=== PATIENT | male | born 1985 | race African-American/Black ===

== ENCOUNTER 2018-09-07 10:30 | Emergency (ER) | payer MEDICAID ==
[~2018-09-07] VITALS: Ht 190.5 cm; Wt 155.0 kg
[2018-09-07] MEDS ORDERED: ALBUTEROL (0.083%) 2.5MG/3ML NEB HHN STA (11:01)
[2018-09-07] MEDS ORDERED: ACETAMINOPHEN 325MG TABLET PO ONE (12:00)
[2018-09-07] MEDS ORDERED: BENZONATATE 100MG CAPSULE PO ONE (12:00)
[2018-09-07 12:26] VITALS: BP 155/90
== END 2018-09-07 12:28 | disposition home or self-care (01) ==
LOC: ER 10:30
DX: B34.9 Viral infection, unspecified (principal); R07.89 Other chest pain
CPT/HCPCS: 71045; 93005; 94640; 99283; J7611